=== PATIENT | female | born 1970 | race Caucasian/White ===

== ENCOUNTER 2018-08-13 10:01 | Emergency (ER) | payer OTHER ==
[~2018-08-13] VITALS: Ht 160 cm; Wt 90.3 kg
[2018-08-13 10:24] VITALS: BP 141/88; Ht 160 cm; Wt 90.3 kg
== END 2018-08-13 13:01 | disposition home or self-care (01) ==
LOC: ED 10:01
DX: J06.9 Acute upper respiratory infection, unspecified (principal); G43.909 Migraine, unspecified, not intractable, without status migrainosus; J45.909 Unspecified asthma, uncomplicated
CPT/HCPCS: 87804; J7613; Q0092